=== PATIENT | male | born 1965 | race Caucasian/White ===

== ENCOUNTER 2016-12-31 19:34 | Emergency (ER) | payer OTHER ==
[~2016-12-31] VITALS: Ht 162.6 cm; Wt 81.6 kg
[2016-12-31] MEDS ORDERED: NITROGLYCERIN OINT 1 GM PACKET TP ONE ×2 (20:00→20:08)
[2016-12-31] MEDS ORDERED: HYDROCODONE/APAP 5-325MG TABLET PO ONE (20:00)
[2016-12-31] MEDS ORDERED: ASPIRIN 81 MG TAB.CHEW PO ONE (20:00)
[2016-12-31] MEDS ORDERED: HYDROCODONE/APAP 5-325MG TABLET ONE (20:08)
[2016-12-31 20:14] LABS: BASOPHILS # (AUTO) 0.1 K/uL (0.0-8.0); BASOPHILS % (AUTO) 0.8 % (0.0-2.0); EOSINOPHILS # (AUTO) 0.2 K/uL (0.0-0.7); EOSINOPHILS % (AUTO) 2.2 % (0.0-7.0); HEMATOCRIT 45.3 % (40-50); HEMOGLOBIN 15.9 G/DL (14.0-18.0); LYMPHOCYTES # (AUTO) 2.2 K/uL (20.0-40.0); LYMPHOCYTES % (AUTO) 30.6 % (20.5-51.5); MEAN CORPUSCULAR HEMOGLOBIN 30.6 UUG (27.0-31.0); MEAN CORPUSCULAR HGB CONC 35 g/dL (32.0-37.0); MEAN CORPUSCULAR VOLUME 86.9 FL (82.0-92.0); MONOCYTES # (AUTO) 0.7 K/uL (2.0-10.0); MONOCYTES % (AUTO) 9.2 % (0.0-11.0); NEUTROPHILS # (AUTO) 4.1 K/uL (1.8-8.9); NEUTROPHILS % (AUTO) 57.2 % (38.5-71.5); PLATELET COUNT (AUTO) 157 K/UL (150-450); RED BLOOD CELL COUNT(AUTO) 5.21 MIL/UL (4.7-6.1); RED CELL DISTRIBUTION WIDTH 12.3 % (11.5-14.5); WHITE BLOOD COUNT (AUTO) 7.3 K/UL (4.0-11.2)
[2016-12-31] MEDS ORDERED: ASPIRIN 81 MG TAB.CHEW ONE (20:18)
[2016-12-31 20:23] LABS: CALCIUM 8.7 mg/dL (8.5-10.1); POTASSIUM 3.9 mmol/L (3.5-5.1)
--- NOTE | 2016-12-31 20:31 | NUR ---
monitor shows nsr, po2=95% on room air, labs drawn and sent, meds administered, pt positioned for comfort. presently awaiting for lab results and also cxr to be done, radialogy was called eaantoineer.
[2016-12-31 20:40] LABS: ALBUMIN 3.5 g/dL (3.4-5.0); BILIRUBIN,DIRECT 0.1 mg/dL (0.0-0.2); BILIRUBIN,TOTAL 0.2 mg/dL (0.2-1.0); TOTAL PROTEIN, SERUM 6.8 g/dL (6.4-8.2)
--- NOTE | 2016-12-31 23:16 | NUR ---
ntg paste removed due to low bp, made aware
--- NOTE | 2016-12-31 23:45 | NUR ---
mse completed, saline lock d/c'd with cath intact. pt d/c'd home, copy of ekg lab tests and aci/ rx x1 given. pt got dressed and ambulated w/o diff/took all belongings.
[2016-12-31 23:47] VITALS: BP 104/61
== END 2016-12-31 23:48 | disposition home or self-care (01) ==
LOC: ER 19:34
DX: R07.89 Other chest pain (principal); M54.2 Cervicalgia; M79.602 Pain in left arm; R20.9 Unspecified disturbances of skin sensation
CPT/HCPCS: 36415; 70030-TC; 71010; 85025; 93005; A4663